=== PATIENT | female | born 1955 | race African-American/Black ===

== ENCOUNTER 2017-10-20 10:45 | Outpatient (CLI) | payer OTHER | END 2017-10-20 10:46 | disposition home or self-care (01) | LOC: DTY/OP 10:45 | PROVIDERS: ATTEND Surgery | DX: Z48.815 Encounter for surgical aftercare following surgery on the digestive system (principal); I10 Essential (primary) hypertension; Z98.84 Bariatric surgery status | CPT/HCPCS: 97802 ==

== ENCOUNTER 2017-11-17 15:46 | Inpatient (IN) | payer MEDICARE ==
[2017-11-27 09:35] VITALS: BMI 47.8
[2017-12-03] MEDS ORDERED: Heparin 5,000 UNITS/ML VIAL ONE (07:56)
[2017-12-03] MEDS ORDERED: CEFAZOLIN/Water 2 GM/20 ML SYRINGE ONE (07:56)
[2017-12-03] MEDS ORDERED: Bupivacaine/Epinephrine 0.25% 30 ML VIAL ONE (09:25)
[2017-12-03] MEDS ORDERED: Midazolam HCl 2 mg/2 ml Vial ONE (09:41)
[2017-12-03] MEDS ORDERED: Fentanyl 100 MCG/2 ML VIAL ONE ×3 (09:41→11:59)
[2017-12-03] MEDS ORDERED: Promethazine HCl 25 MG/ML VIAL ONE (12:20)
[2017-12-03] MEDS ORDERED: diphenhydrAMINE 25 MG CAP PO PRN (12:34)
[2017-12-03] MEDS ORDERED: diphenhydrAMINE 50 MG/ML VIAL IVP PRN ×2 (12:34→13:32)
[2017-12-03] MEDS ORDERED: diphenhydrAMINE 50 MG/ML VIAL IM PRN (12:34)
[2017-12-03] MEDS ORDERED: Ondansetron HCl/PF 4 MG/2 ML Vial IVP PRN ×2 (12:34→13:32)
[2017-12-03] MEDS ORDERED: Morphine CADD 1 MG/ML CADD IVPB PRN (12:34)
[2017-12-03] MEDS ORDERED: Naloxone HCl 0.4 mg/ml Vial IV PRN (12:34)
[2017-12-03] MEDS ORDERED: Communication Order-Pharmacy FS SCH (12:45)
--- NOTE | 2017-12-03 13:20 | OP ---
DATE OF PROCEDURE: 12/03/2017 PREOPERATIVE DIAGNOSES: 1. Morbid obesity with BMI of 50. 2. Hypertension. POSTOPERATIVE DIAGNOSES: 1. Morbid obesity with BMI of 50. 2. Hypertension. PROCEDURES PERFORMED: 1. Laparoscopic sleeve gastrectomy with [place] staple line reinforcements and 38 [place] bougie. 2. Hiatal hernia repair paraesophageal without fundoplication. 3. Esophagogastroduodenoscopy. SURGEON: Slade Castro M.D. ANESTHESIA: General. ESTIMATED BLOOD LOSS: Minimal. COMPLICATIONS: None. SPECIMEN: Stomach. FINDINGS: Paraesophageal hiatal hernia. INDICATION: The patient is a 62-year-old female who presents for weight loss surgery. She underwent cardiac clearance. She has been to our dietitian and had her preoperative education. She understan ds the risks, benefits, specific to sleeve gastrectomy as well as alternative procedures for weight l oss. TECHNIQUE: The patient was taken to the operation room and placed supine on the table. After genera l anesthetic was obtained, her arms, legs are double strapped to bariatric table. OG tube was used t o decompress the stomach. The abdomen is prepped and draped in a sterile fashion. Left subcostal 5- mm Optiview trocar was placed in the usual fashion. High-flow pneumoperitoneum was obtained. Left a nd right abdominal 12-mm ports were placed under direct visualization. Right subcostal 5-mm port is placed. The patient was placed in reverse Trendelenburg position. A 5-mm incision was made at the x iphoid and Jeremy was used to raise the liver off the GE junction. The patient is seen to have a hiatal hernia. Short gastrics were taken down to a distance of 5 cm proximal to the pylorus all the way up to the left miguel, angle of His, posterior fundus was all completely dissected. The stomach is flipped over and on the medial side, the gastrohepatic ligament is entered. There was no replaced r ight hepatic artery. A circumferential dissection of the esophagus was performed and the mediastinum was entered. Ethibond suture with the tie knot system is used to close the diaphragmatic hernia pos teriorly. This was performed after a 38 bougie is brought in and its tip left in the antrum of the s tomach. The crural closure is not too tight. The GE junction was restored back into the abdominal c avity under no tension. Multiple loads of an [place] stapling device used to form the sleeve. The f irst was fired at a distance of 6 cm proximal to the pylorus angled up towards the incisura. Multipl e loads were then fired up along the bougie, stomach is completely transected at the angle of His. T he stomach was removed from the left abdominal incision. This fascial defect was closed using GraNee needle 0 Vicryl tie. All port sites were infiltrated using local anesthetic. The Jeremy retract or was removed under direct visualization. EGD scope was passed into the esophagus, stomach to the l evel of duodenum without obstruction. There is no air leakage through the staple line. There is no evidence of stricture or stenosis of the stomach. EGD scope was used to decompress the stomach, was pulled and removed. All ports are removed under camera visualization without bleeding. Pneumoperito neum was let down. The Vicryl tie was used to close the fascial defect from left abdominal cavity. All incisions were irrigated and closed using 4-0 Monocryl and Dermabond. The patient was en route t o recovery in stable condition. All instrument counts, needle counts, and lap counts were correct.
[2017-12-03] MEDS ORDERED: Dextrose 5% in Water 1,000 ML IV PRN (13:32)
[2017-12-03] MEDS ORDERED: Hydrocodone-Acetamin 15 ML UDCUP PO PRN (13:32)
[2017-12-03] MEDS ORDERED: hydrALAZINE 20 MG/ML VIAL SLOW IVP PRN (13:32)
[2017-12-03] MEDS ORDERED: Dextrose 50% Abboject 50 ML SYRINGE SLOW IVP PRN (13:32)
[2017-12-03] MEDS ORDERED: Promethazine HCl 25 MG/ML VIAL IM PRN (13:32)
[2017-12-03] MEDS ORDERED: Glycopyrrolate 0.2 MG/ML 5 ML SYRINGE ONE (14:27)
[2017-12-03] MEDS ORDERED: PROPOFOL 200 MG/20 ML VIAL ONE (14:27)
[2017-12-03] MEDS: Acetaminophen 1,000 MG in Premix Bag 1 BAG IVPB SCH ×2 (18:00→22:48)
[2017-12-03] MEDS: D5 1/2 NS w/20 mEq KCL 1,000 ML IV SCH (18:00)
[2017-12-03] MEDS: CEFAZOLIN/Water 2 GM/20 ML SYRINGE SLOW IVP SCH (18:01)
[2017-12-03] MEDS ORDERED: Enoxaparin Sodium 40 MG/0.4 ML SYRINGE SC SCH (21:00)
[2017-12-04] MEDS: CEFAZOLIN/Water 2 GM/20 ML SYRINGE SLOW IVP SCH (02:09)
[2017-12-04] MEDS: D5 1/2 NS w/20 mEq KCL 1,000 ML IV SCH ×2 (02:14→06:45)
[2017-12-04 05:52] LABS: #Lymphocytes 1.1 thou/uL (1.20-3.40); #Monocytes 1.1 thou/uL (0.11-0.59); #Neutrophils 11.9 thou/uL (1.40-6.50); %Basophils 0.1 % (0.0-1.0); %Eosinophils 0.1 % (0.0-10.0); %Monocytes 7.8 % (0.0-10.0); Hemoglobin 12.9 g/dL (12.0-16.0); Mean Corpuscular Hemoglobin 27.3 pg (27.0-31.0); Mean Corpuscular Volume 82.7 fl (81.0-99.0); Mean Platelet Volume 8.6 fL (7.4-10.4); Platelet Count 243 thou/uL (130-400); RBC Distribution Width 13.3 % (11.5-14.5); Red Blood Cell (RBC) Count 4.72 mill/uL (4.20-5.40); White Blood Cell (WBC) Count 14.1 thou/uL (4.8-10.8)
[2017-12-04 06:27] LABS: Anion Gap 12 mmol/L (10-20); BUN (Urea Nitrogen) 9 mg/dL (9.8-20.1); Calc. Creatinine Clearance 146 mL/min (70-130); Calcium 9.3 mg/dL (7.8-10.44); Carbon Dioxide 22 mmol/L (23-31); Chloride 102 mmol/L (98-107); Estimated GFR-MDRD Greater than 90; Glucose 142 mg/dL (80-115); Potassium 4.1 mmol/L (3.5-5.1); Sodium 132 mmol/L (136-145)
[2017-12-04] MEDS: Acetaminophen 1,000 MG in Premix Bag 1 BAG IVPB SCH (06:42)
[2017-12-04] MEDS ORDERED: Lisinopril 20 MG TAB PO SCH (09:00)
[2017-12-04] MEDS ORDERED: Pantoprazole 40 MG VIAL IVP SCH (09:00)
[2017-12-04] MEDS ORDERED: Hydrocodone-Acetamin 15 ML UDCUP PO PRN (11:12)
[2017-12-04 11:33] VITALS: BP 157/81; TEMP 97.9
== END 2017-12-04 12:03 | disposition home or self-care (01) | DRG 621 ==
LOC: UNDOADMIN 15:46 → T4-A 15:46 → SURG A 12-03 07:30 → UNDOADMIN 12-03 11:36 → SJJU 12-03 12:14
PROVIDERS: ADMIT Surgery; ATTEND Surgery
PROC: 0DB64Z3 Excision of Stomach, Percutaneous Endoscopic Approach, Vertical (ICD-10-PCS; principal; 2017-12-03)
PROC: 0BQT4ZZ Repair Diaphragm, Percutaneous Endoscopic Approach (ICD-10-PCS; 2017-12-03)
PROC: 0DJ08ZZ Inspection of Upper Intestinal Tract, Via Natural or Artificial Opening Endoscopic (ICD-10-PCS; 2017-12-03)
DX: E66.01 Morbid (severe) obesity due to excess calories (principal); Z68.43 Body mass index [BMI] 50.0-59.9, adult; I10 Essential (primary) hypertension; K44.9 Diaphragmatic hernia without obstruction or gangrene
CPT/HCPCS: 36415; 80048; 85025; 88307; 88312; 96374; J0131; J1644; J1650; J2250; J2274; J2550; J2704; J3010

== ENCOUNTER 2017-11-27 09:13 | Outpatient (CLI) | payer MEDICARE ==
[2017-11-27 10:26] LABS: #Basophils 0.1 thou/uL (0.0-0.2); #Eosinphils 0.7 thou/uL (0.0-0.7); #Lymphocytes 2.5 thou/uL (1.20-3.40); #Monocytes 0.7 thou/uL (0.11-0.59); #Neutrophils 4.8 thou/uL (1.40-6.50); %Basophils 0.6 % (0.0-1.0); %Eosinophils 7.7 % (0.0-10.0); %Lymphocytes 28.7 % (21.0-51.0); %Monocytes 7.5 % (0.0-10.0); %Neutrophils 55.3 % (42.0-75.0); Hemoglobin 13.8 g/dL (12.0-16.0); Mean Corpuscular HGB CONC 32.4 g/dL (32.0-36.0); Mean Corpuscular Hemoglobin 27.2 pg (27.0-31.0); Mean Corpuscular Volume 83.8 fl (81.0-99.0); Mean Platelet Volume 8.6 fL (7.4-10.4); Platelet Count 257 thou/uL (130-400); RBC Distribution Width 13.6 % (11.5-14.5); Red Blood Cell (RBC) Count 5.07 mill/uL (4.20-5.40); White Blood Cell (WBC) Count 8.7 thou/uL (4.8-10.8)
[2017-11-27 10:33] LABS: Hemoglobin A1c 5.5 % (4.0-6.0)
[2017-11-27 10:39] LABS: ALT (SGPT) 9 U/L (8-55); AST (SGOT) 13 U/L (5-34); Albumin 4.5 g/dL (3.4-4.8); Alkaline Phosphatase 104 U/L (40-150); Anion Gap 17 mmol/L (10-20); BUN (Urea Nitrogen) 21 mg/dL (9.8-20.1); Bilirubin, Direct 0.2 mg/dL (0.1-0.3); Bilirubin, Total 0.4 mg/dL (0.2-1.2); Calc. Creatinine Clearance 0 mL/min (70-130); Calcium 10.5 mg/dL (7.8-10.44); Carbon Dioxide 24 mmol/L (23-31); Chloride 104 mmol/L (98-107); Estimated GFR-MDRD Greater than 90; Globulin 3.6 g/dL (2.4-3.5); Glucose 94 mg/dL (80-115); Potassium 4.5 mmol/L (3.5-5.1); Protein, Total 8.1 g/dL (6.0-8.3); Sodium 140 mmol/L (136-145)
--- NOTE | 2017-11-27 10:58 | RAD ---
PA AND LATERAL VIEWS CHEST: HISTORY: Preop evaluation. FINDINGS: The heart size is normal. The lungs are well expanded without focal areas of consolidation, pneumoth orax, or pleural effusions. The aorta is tortuous. No acute osseous abnormalities are seen. IMPRESSION: No radiographic evidence of acute cardiopulmonary process. POS: [facility]
--- NOTE | 2017-11-27 16:47 | EKG ---
Test Reason : Blood Pressure : / mmHG Vent. Rate : 077 BPM Atrial Rate : 077 BPM P-R Int : 172 ms QRS Dur : 076 ms QT Int : 388 ms P-R-T Axes : 055 -05 025 degrees QTc Int : 439 ms Normal sinus rhythm Minimal voltage criteria for LVH, may be normal variant Cannot rule out Anterior infarct , age undetermined Abnormal ECG No previous ECGs available Confirmed by DR. Angie HILL ([id number]) on 11/27/2017 4:47:11 PM Referred By: JADEN Confirmed By:DR. Agnie HILL
== END 2017-11-27 09:14 | disposition home or self-care (01) ==
LOC: LABBT 09:13
PROVIDERS: ATTEND Surgery
DX: Z01.818 Encounter for other preprocedural examination (principal); I10 Essential (primary) hypertension; Z68.43 Body mass index [BMI] 50.0-59.9, adult
CPT/HCPCS: 71046; 80053; 80076; 83036; 85025; 93005; 93010